=== PATIENT | female | born 1975 | race African-American/Black ===

== ENCOUNTER 2016-09-25 21:40 | Emergency (ER) | payer OTHER ==
[~2016-09-25] VITALS: Ht 167.6 cm; Wt 75.0 kg
[~2016-09-25 21:40] MED LIST: OXYC-360 PO; TAB-TAB PO; Z.0.BCPILL PO
[2016-09-25 21:43] VITALS: BP 147/98; PULSE 82; RESP 16; TEMP 98.6; O2SAT 100
--- NOTE | 2016-09-25 21:47 | PD ---
Physical Exam Date Seen by Provider: Sep 25, 2016 Time Seen by Provider: 21:45 Narrative 41 y/o female with plueritic chest pain when she takes a deep breath. No SOB, Fatigue or other symptoms. Pain worse with movement and leaning forward. No fever orchills. Denies Injury. No Hx. GERD. Recent plastic Surgery 7 weeks ago. Denies Lower extremity cramps. Vital Signs reviewed. Patient is Stable and awaiting Bed Placement. Data Data Last Documented VS Vital Signs Date Time Temp Pulse Resp B/P (MAP) Pulse Ox O2 Delivery O2 Flow Rate FiO2 09/25/16 21:43 98.6 82 16 147/98 (114) 100 MDM Medical Record Reviewed: Yes Supervised Visit with STEFANO: Yes Condition: Stable Nik Hernandez Sep 25, 2016 21:47
--- NOTE | 2016-09-25 22:34 | PD ---
HPI Chief Complaint: Chest Pain Time Seen by Provider: 22:24 Travel History International Travel<30 days: No Contact w/Intl Traveler<30days: No Traveled to known affect area: No History of Present Illness HPI The patient is a 41-year-old after Bur[place] female who presents to the emergency department for chest pain. The patient developed chest pain last Sunday which is substernal to just right of the sternal border, sharp, pleuritic , worse with inspiration. The patient also complains of pain over the affected area when she lies on the affected area or moves in a certain direction. The pain is described as sharp, pleuritic, and nonradiating. She denies any shortness of breath, nausea, vomiting, or diaphoresis. The patient denies any history of pulmonary embolism, DVT, recent travel, or recent hospitalizations. However, 7 weeks ago she underwent liposuction by plastic surgeon in [place], [place]. The patient denies any history of coronary artery disease, hypertension, hyperlipidemia, diabetes, tobacco use, or significant early family medical history for heart disease. She denies any swelling to lower extremities. She denies any fever, chills, sweats, or cough. PFSH Past Medical History Medical History: Denies Significant Hx Cancer: No Diabetes: No Diminished Hearing: No Glaucoma: No Hepatitis: No Hiatal Hernia: No Hypertension: No Medical other: Yes (lipo suction one week ago) Thyroid Disease: No Tetanus Vaccination: > 5 Years Influenza Vaccination: No ?: Not LMP: 09/19/2016 Menopausal: No : 0 Para: 0 Miscarriage: 0 Past Surgical History Surgical History: No Previous Surgery Abdominal Surgery: No Cardiac Surgery: No Ear Surgery: No Endocrine Surgery: No Eye Surgery: No Genitourinary Surgery: No Gynecologic Surgery: Yes (LEEP 09/2008, [facility] ) Oral Surgery: No Pacemaker: No Social History Alcohol Use: Yes (weekends) Tobacco Use: No Substance Use: No Allergies-Medications (Allergen,Severity, Reaction): Coded Allergies: No Known Allergies (Verified , 09/25/16) Reported Meds & Prescriptions Reported Meds & Active Scripts Active Review of Systems Except as stated in HPI: all other systems reviewed are Neg General / Constitutional: No: Fever HENT: No: Lightheadedness Cardiovascular: Positive: Chest Pain or Discomfort, No: Diaphoresis Respiratory: Positive: Pleuritic Pain, No: Cough, Shortness of Breath Gastrointestinal: No: Nausea, Vomiting, Abdominal Pain Musculoskeletal: No: Edema Physical Exam Narrative GENERAL: Awake, alert, pleasant 41 year-old female who appears her stated age and is in no acute respiratory distress. SKIN: Focused skin assessment warm/dry. HEAD: Atraumatic. Normocephalic. EYES: Pupils equal and round. No scleral icterus. No injection or drainage. ENT: No nasal bleeding or discharge. Mucous membranes pink and moist. NECK: Trachea midline. No JVD. CARDIOVASCULAR: Regular rate and rhythm. No murmur appreciated. Palpation of the chest wall does not reproduce symptoms. RESPIRATORY: No accessory muscle use. Clear to auscultation. Breath sounds equal bilaterally. GASTROINTESTINAL: Abdomen soft, non-tender, nondistended. No rebound tenderness. MUSCULOSKELETAL: No obvious deformities. No clubbing. No cyanosis. No edema. Calves are soft bilaterally. NEUROLOGICAL: Awake and alert. No obvious cranial nerve deficits. Motor grossly within normal limits. Normal speech. PSYCHIATRIC: Appropriate mood and affect; insight and judgment normal. Data Data Last Documented VS Vital Signs Date Time Temp Pulse Resp B/P (MAP) Pulse Ox O2 Delivery O2 Flow Rate FiO2 09/26/16 01:28 81 18 143/89 (107) 100 Room Air 09/25/16 21:43 98.6 Orders Orders Electrocardiogram (09/25/16 22:31) Ckmb (Isoenzyme) Profile (09/25/16 22:31) Complete Blood Count With Diff (09/25/16 22:31) Comprehensive Metabolic Panel (09/25/16 22:31) D-Dimer (09/25/16 22:31) Magnesium (Mg) (09/25/16 22:31) Prothrombin Time / Inr (Pt) (09/25/16 22:31) Act Partial Throm Time (Ptt) (09/25/16 22:31) Troponin I (09/25/16 22:31) Lipase (09/25/16 22:31) Chest, Single Ap (09/25/16 22:31) Ecg Monitoring (09/25/16 22:31) Bilateral Bp Monitoring (09/25/16 22:31) Iv Access Insert/Monitor (09/25/16 22:31) Oximetry (09/25/16 22:31) Oxygen Administration (09/25/16 22:31) Aspirin Chew (Aspirin Chew) (09/25/16 22:45) Sodium Chloride 0.9% Flush (Ns Flush) (09/25/16 22:45) Sodium Chlorid 0.9% 500 Ml Inj (Ns 500 M (09/25/16 22:45) CKMB (09/25/16 23:00) CKMB% (09/25/16 23:00) Ct Pulmonary Angiogram (09/26/16 ) Iohexol 350 Inj (Omnipaque 350 Inj) (09/26/16 01:22) Labs Laboratory Tests Test 09/25/16 23:00 09/26/16 00:05 White Blood Count 8.1 TH/MM3 Red Blood Count 3.92 MIL/MM3 Hemoglobin 10.2 GM/DL Hematocrit 32.4 % Mean Corpuscular Volume 82.7 FL Mean Corpuscular Hemoglobin 26.1 PG Mean Corpuscular Hemoglobin Concent 31.5 % Red Cell Distribution Width 16.9 % Platelet Count 380 TH/MM3 Mean Platelet Volume 8.5 FL Neutrophils (%) (Auto) 52.6 % Lymphocytes (%) (Auto) 37.5 % Monocytes (%) (Auto) 7.7 % Eosinophils (%) (Auto) 1.7 % Basophils (%) (Auto) 0.5 % Neutrophils # (Auto) 4.3 TH/MM3 Lymphocytes # (Auto) 3.0 TH/MM3 Monocytes # (Auto) 0.6 TH/MM3 Eosinophils # (Auto) 0.1 TH/MM3 Basophils # (Auto) 0.0 TH/MM3 CBC Comment AUTO DIFF Differential Total Cells Counted 100 Neutrophils % (Manual) 41 % Lymphocytes % 49 % Monocytes % 5 % Eosinophils % 5 % Neutrophils # (Manual) 3.3 TH/MM3 Differential Comment FINAL DIFF MANUAL Platelet Estimate NORMAL Platelet Morphology Comment NORMAL Red Cell Morphology Comment NORMAL Blood Urea Nitrogen 11 MG/DL Creatinine 0.78 MG/DL Random Glucose 80 MG/DL Total Protein 6.8 GM/DL Albumin 2.8 GM/DL Calcium Level 8.2 MG/DL Magnesium Level 2.0 MG/DL Alkaline Phosphatase 60 U/L Aspartate Amino Transf (AST/SGOT) 82 U/L Alanine Aminotransferase (ALT/SGPT) 23 U/L Total Bilirubin 0.3 MG/DL Sodium Level 138 MEQ/L Potassium Level 5.1 MEQ/L Chloride Level 108 MEQ/L Carbon Dioxide Level 23.4 MEQ/L Anion Gap 7 MEQ/L Estimat Glomerular Filtration Rate 98 ML/MIN Total Creatine Kinase 430 U/L Creatine Kinase MB 0.9 NG/ML Creatine Kinase MB % 0.2 % Troponin I LESS THAN 0.02 NG/ML Lipase 117 U/L Prothrombin Time 10.0 SEC Prothromb Time International Ratio 0.9 RATIO Activated Partial Thromboplast Time 22.8 SEC D-Dimer Quantitative (PE/DVT) 1.47 MG/L FEU [facility] Medical Decision Making Medical Screen Exam Complete: Yes Emergency Medical Condition: Yes Medical Record Reviewed: Yes Interpretation(s) EKG reveals normal sinus rhythm with a rate of 78. No ischemic changes or ectopy noted. Laboratory Tests Test 09/25/16 23:00 09/26/16 00:05 White Blood Count 8.1 TH/MM3 Red Blood Count 3.92 MIL/MM3 Hemoglobin 10.2 GM/DL Hematocrit 32.4 % Mean Corpuscular Volume 82.7 FL Mean Corpuscular Hemoglobin 26.1 PG Mean Corpuscular Hemoglobin Concent 31.5 % Red Cell Distribution Width 16.9 % Platelet Count 380 TH/MM3 Mean Platelet Volume 8.5 FL Neutrophils (%) (Auto) 52.6 % Lymphocytes (%) (Auto) 37.5 % Monocytes (%) (Auto) 7.7 % Eosinophils (%) (Auto) 1.7 % Basophils (%) (Auto) 0.5 % Neutrophils # (Auto) 4.3 TH/MM3 Lymphocytes # (Auto) 3.0 TH/MM3 Monocytes # (Auto) 0.6 TH/MM3 Eosinophils # (Auto) 0.1 TH/MM3 Basophils # (Auto) 0.0 TH/MM3 CBC Comment AUTO DIFF Differential Total Cells Counted 100 Neutrophils % (Manual) 41 % Lymphocytes % 49 % Monocytes % 5 % Eosinophils % 5 % Neutrophils # (Manual) 3.3 TH/MM3 Differential Comment FINAL DIFF MANUAL Platelet Estimate NORMAL Platelet Morphology Comment NORMAL Red Cell Morphology Comment NORMAL Blood Urea Nitrogen 11 MG/DL Creatinine 0.78 MG/DL Random Glucose 80 MG/DL Total Protein 6.8 GM/DL Albumin 2.8 GM/DL Calcium Level 8.2 MG/DL Magnesium Level 2.0 MG/DL Alkaline Phosphatase 60 U/L Aspartate Amino Transf (AST/SGOT) 82 U/L Alanine Aminotransferase (ALT/SGPT) 23 U/L Total Bilirubin 0.3 MG/DL Sodium Level 138 MEQ/L Potassium Level 5.1 MEQ/L Chloride Level 108 MEQ/L Carbon Dioxide Level 23.4 MEQ/L Anion Gap 7 MEQ/L Estimat Glomerular Filtration Rate 98 ML/MIN Total Creatine Kinase 430 U/L Creatine Kinase MB 0.9 NG/ML Creatine Kinase MB % 0.2 % Troponin I LESS THAN 0.02 NG/ML Lipase 117 U/L Prothrombin Time 10.0 SEC Prothromb Time International Ratio 0.9 RATIO Activated Partial Thromboplast Time 22.8 SEC D-Dimer Quantitative (PE/DVT) 1.47 MG/L FEU Chest x-rays unremarkable CT pulmonary angiogram reveals trace pleural effusion, no evidence of PE Differential Diagnosis Differential diagnosis includes pleurisy, costochondritis, pericarditis, myocarditis, acute coronary syndrome, GERD, esophageal spasm, pulmonary embolism , pleural effusion. Narrative Course IV was established, labs are drawn and sent, and the patient was placed on cardiac telemetry monitoring and continuous pulse oximetry monitoring. EKG was ordered and interpreted. Chest x-ray was obtained. The patient received aspirin 162 mg orally. D-dimer was sent to lab. D-dimer was positive, therefore, CT pulmonary angiogram was ordered. CT pulmonary angiogram reveals trace pleural effusion, negative for pulmonary embolism. Troponin is negative. The patient has pleuritic pain that is also positional, most likely component of pleurisy. The patient has no risk factors for cardiac events, very atypical pain, patient will be treated with nonsteroidal anti-inflammatories. She will be provided a copy of her chest x-ray results, CT results, and lab results at discharge. She is advised to return if symptoms worsen or progress. Diagnosis Primary Impression: Pleuritic chest pain Patient Instructions: General Instructions Additional Instructions: Medications as directed. Please provide the patient a copy of her chest x-ray results, CT results, and lab results at discharge. Return if symptoms worsen or progress. Med/Other Pt SpecificInfo: Prescription(s) given Scripts Ibuprofen (Ibuprofen) 600 Mg Tab 600 MG PO Q6H Y for Pain/Inflammation, #20 TAB 0 Refills Prov: Nickolas Burger MD 09/26/16 Disposition: DISCHARGE HOME Condition: Stable Nickolas Burger MD Sep 25, 2016 22:34
[2016-09-25] MEDS ORDERED: SODIUM CHLORIDE 0.9% FLUSH 10 ML FLUSH IVF PRN (22:45)
[2016-09-25] MEDS ORDERED: ASPIRIN 81 MG CHEW TAB PO ONE (22:45)
[2016-09-25] MEDS ORDERED: SODIUM CHLORID 0.9% 500 ML INJ 500 ML IV ONE (22:45)
[2016-09-25 23:19] VITALS: BP 144/88; PULSE 89; RESP 18; O2SAT 100
--- NOTE | 2016-09-25 23:19 | RADRPT ---
EXAM DATE/TIME: 09/25/2016 22:47 [facility] COMPARISON: No previous studies available for comparison. INDICATIONS : Chest pain. MEDICAL HISTORY : None. SURGICAL HISTORY : None. ENCOUNTER: Initial ACUITY: 4 - 6 days PAIN SCORE: 3/10 LOCATION: Bilateral chest FINDINGS: A single view of the chest demonstrates the lungs to be symmetrically aerated without evidence of mas s, infiltrate or effusion. The cardiomediastinal contours are unremarkable. Osseous structures are intact. CONCLUSION: Normal examination. Adonis Altamirano MD on September 25, 2016 at 23:18 Board Certified Radiologist. This report was verified electronically.
[2016-09-25 23:26] LABS: AUTOMATED NEUTROPHIL # 4.3 TH/MM3 (1.8-7.7); BASOPHIL % 0.5 % (0.0-2.0); EOSINOPHIL # 0.1 TH/MM3 (0-0.4); EOSINOPHIL % 1.7 % (0.0-4.0); HEMATOCRIT 32.4 % (35.0-46.0); LYMPH % 37.5 % (9.0-44.0); MEAN CELL VOLUME 82.7 FL (80.0-100.0); MEAN CORPUSCULAR HEMOGLOBIN 26.1 PG (27.0-34.0); MEAN CORPUSCULAR HGB CONC 31.5 % (32.0-36.0); MONO % 7.7 % (0.0-8.0); NEUT % 52.6 % (16.0-70.0); PLATELET COUNT 380 TH/MM3 (150-450); RED BLOOD COUNT 3.92 MIL/MM3 (4.00-5.30); RED CELL DISTRIBUTION WIDTH 16.9 % (11.6-17.2); WHITE BLOOD COUNT 8.1 TH/MM3 (4.0-11.0)
[2016-09-25 23:51] LABS: HEMO FLAGS AUTO DIFF
[2016-09-26 00:07] LABS: ALKALINE PHOSPHATASE 60 U/L (45-117); ALT (GPT) 23 U/L (10-53); ANION GAP 7 MEQ/L (5-15); AST (GOT) 82 U/L (15-37); BICARBONATE 23.4 MEQ/L (21.0-32.0); BLOOD UREA NITROGEN 11 MG/DL (7-18); CHLORIDE 108 MEQ/L (98-107); CREATINE KINASE 430 U/L (26-192); GLOMERULAR FILTRATION RATE 98 ML/MIN (>89); POTASSIUM 5.1 MEQ/L (3.5-5.1); SODIUM (NA) 138 MEQ/L (136-145); TOTAL BILIRUBIN ADULT 0.3 MG/DL (0.2-1.0)
[2016-09-26 00:20] LABS: CKMB 0.9 NG/ML (0.5-3.6)
[2016-09-26 00:27] LABS: INTERNATIONAL NORMALIZED RATIO 0.9 RATIO
[2016-09-26 00:33] LABS: APTT (PATIENT) 22.8 SEC (24.3-30.1)
[2016-09-26 00:41] LABS: EOSINOPHILS 5 % (0-4); NEUTROPHIL # MANUAL DIFF 3.3 TH/MM3 (1.8-7.7); POLYS (SEG NEUTROPHILS) 41 % (16-70); WBC DIFF SAMPLE 100
[2016-09-26 00:48] LABS: SCAN/DIFF FINAL DIFF MANUAL
[2016-09-26 00:49] LABS: PLATELET ESTIMATE SMEAR NORMAL (NORMAL)
[2016-09-26 00:50] LABS: PLATELET MORPHOLOGY NORMAL (NORMAL)
[2016-09-26] MEDS ORDERED: IOHEXOL 350 MG/ML 10 ML VIAL (for RAD DIAG) IVCONTRAST ONE (01:22)
[2016-09-26 01:28] VITALS: BP 143/89; PULSE 81; RESP 18; O2SAT 100
--- NOTE | 2016-09-26 01:45 | RADRPT ---
EXAM DATE/TIME: 09/26/2016 01:12 [facility] COMPARISON: No previous studies available for comparison. INDICATIONS : Chest pain X 3 days. IV CONTRAST: 74 cc Omnipaque 350 (iohexol) IV RADIATION DOSE: 23.28 CTDIvol (mGy) MEDICAL HISTORY : None SURGICAL HISTORY : Liposuction one week ago. ENCOUNTER: Initial ACUITY: 3 days PAIN SCALE: 5/10 LOCATION: chest TECHNIQUE: Volumetric scanning of the chest was performed using a pulmonary embolism protocol MIP images were re constructed. Using automated exposure control and adjustment of the mA and/or kV according to patien t size, radiation dose was kept as low as reasonably achievable to obtain optimal diagnostic quality images. DICOM format image data is available electronically for review and comparison. Follow-up recommendations for detected pulmonary nodules are based at a minimum on nodule size and pa tient risk factors according to Fleischner Society Guidelines. FINDINGS: There is a small right-sided pleural effusion. No filling defects identified in the pulmonary artery to suggest pulmonary embolic disease. Minimal dependent atelectasis in the lungs. CONCLUSION: 1. Negative for pulmonary embolus. Trace right pleural fluid. Jayden Wray MD on September 26, 2016 at 1:38 Board Certified Radiologist. This report was verified electronically.
[2016-09-26] MEDS ORDERED: IBUP-232 PO (01:55)
--- NOTE | 2016-09-26 13:35 | EKG ---
Date Performed: 09/25/2016 Time Performed: 22:38:34 PTAGE: 41 years EKG: Sinus rhythm NORMAL ECG NO PREVIOUS TRACING DOCTOR: Naida Granados Interpretating Date/Time 09/26/2016 13:31:57
== END 2016-09-26 02:06 | disposition home or self-care (01) ==
LOC: NEPE 21:40
DX: R07.81 Pleurodynia (principal)
CPT/HCPCS: 71010; 71275; 80053; 82550; 82552; 83690; 83735; 84484; 85007; 85027; 85379; 85610; 85730; 93005; 99285; J7040; Q9967